=== PATIENT | male | born 1940 | race Hispanic/Latino ===

== ENCOUNTER 2017-11-24 16:30 | Inpatient (IN) | payer MEDICARE ==
--- NOTE | 2017-11-24 18:03 | ED PDOC ---
HPI: Psych/Substance Abuse Time Seen by Provider: 11/24/17 16:52 Chief Complaint (Nursing): Psychiatric Evaluation History Per: Patient (77 Y/O MALE H/O BIPOLAR DISORDER NONCOMPLIANT WITH MEDICATIONS DUE TO INTERMITTENT CONFUSION HERE FOR PSYCH EVALUATION. PATIENT STATES HIS ONE WEEK AGO AND HE HAS BEEN GETTING MORE CONFUSED AND NONCOMPLIANT WITH MEDICATIONS. DENIES ANY SI/HI. PATIENT STATES HIS PSYCHIATRIST ADVISED HIS FAMILY TO BRING HIM TO [facility] FOR ADMISSION AND TREATMENT.) Past Medical History Reviewed: Historical Data, Nursing Documentation, Vital Signs Vital Signs: Last Vital Signs Temp 98.5 F 11/24/17 16:33 Pulse 78 11/24/17 16:33 Resp 18 11/24/17 16:33 BP 158/76 H 11/24/17 16:33 Pulse Ox 99 11/24/17 16:33 - Medical History PMH: HTN, Hypothyroidism - Family History Family History: States: No Known Family Hx - Home Medications Home Medications: Ambulatory Orders Medication Instructions Recorded Unobtainable 11/25/17 - Allergies Allergies/Adverse Reactions: Allergies Allergy/AdvReac Type Severity Reaction Status Date / Time No Known Allergies Allergy Verified 11/24/17 16:33 Review of Systems ROS Statement: Except As Marked, All Systems Reviewed And Found Negative Physical Exam - Reviewed Nursing Documentation Reviewed: Yes Vital Signs Reviewed: Yes - Physical Exam Appears: Positive for: Well, Non-toxic, No Acute Distress Head Exam: Positive for: ATRAUMATIC, NORMAL INSPECTION, NORMOCEPHALIC Skin: Positive for: Normal Color, Warm, DRY Eye Exam: Positive for: EOMI, Normal appearance, PERRL ENT: Positive for: Normal ENT Inspection Neck: Positive for: Normal, Painless ROM Cardiovascular/Chest: Positive for: Regular Rate, Rhythm Respiratory: Positive for: CNT, Normal Breath Sounds Gastrointestinal/Abdominal: Positive for: Normal Exam, Soft Back: Positive for: Normal Inspection Extremity: Positive for: Normal ROM Neurologic/Psych: Positive for: Alert, Oriented - Laboratory Results Result Diagrams: 11/24/17 17:38 11/25/17 07:42 - ECG O2 Sat by Pulse Oximetry: 99 - Progress ED Course And Treament: uti noted. keflex 500 mg and urine cx ordered Disposition - Clinical Impression Clinical Impression: Adjustment disorder with depressed mood, UTI (urinary tract infection) - Patient ED Disposition Is Patient to be Admitted: Transfer of Care - Disposition Disposition: Transfer of Care Disposition Time: 20:15 Condition: STABLE Patient Signed Over To: Sarahi Buenrostro Handoff Comments: pending crisis evl
[2017-11-24 18:19] LABS: BASO # 0.1 K/uL (0.0-0.2); BASO % 0.8 % (0.0-2.0); EOS # 0.3 K/uL (0.0-0.7); EOS % 2.9 % (0.0-4.0); HEMOGLOBIN 15.7 g/dL (12.0-18.0); LYMPH # 2.6 K/uL (1.0-4.3); MEAN CELL VOLUME 89.7 fl (80.0-94.0); MEAN CORPUSCULAR HEMOGLOBIN 30.6 pg (27.0-31.0); MEAN CORPUSCULAR HGB CONC 34.2 g/dL (33.0-37.0); MEAN PLATELET VOLUME 7.8 fl (7.2-11.7); MONO # 0.9 K/uL (0.0-0.8); MONO % 7.9 % (0.0-10.0); NEUT # 7.4 K/uL (1.8-7.0); NEUT % 65.4 % (50.0-75.0); NRBC % 0.1 % (0.0-0.0); RBC 5.13 Mil/uL (4.40-5.90); RED CELL DISTRIBUTION WIDTH 13.1 % (11.5-14.5); WHITE BLOOD COUNT 11.4 K/uL (4.8-10.8)
[2017-11-24 18:30] LABS: ALB/GLOB RATIO 1.2 (1.0-2.1); ALBUMIN 4.3 g/dL (3.5-5.0); ALT/SGPT 18 U/L (21-72); AST/SGOT 21 U/L (17-59); BLOOD UREA NITROGEN 24 mg/dl (9-20); CALCIUM 10.5 mg/dL (8.4-10.2); GFR NON-AFRICAN AMERICAN > 60
[2017-11-24 19:05] LABS: SQUAMOUS EPITHIAL 1 /hpf (0-5); URINE AMORPHOUS SEDIMENT FEW /ul (<OCC); URINE BACTERIA RARE (<OCC); URINE BILIRUBIN NEGATIVE (NEGATIVE); URINE CLARITY CLOUDY (Clear); URINE COLOR YELLOW (YELLOW); URINE GLUCOSE (UA) NEG (Normal); URINE PROTEIN 30 mg/dL (NEGATIVE)
[2017-11-24 19:09] LABS: URINE BLOOD TRACE (NEGATIVE); URINE LEUKOCYTE ESTERASE MODERATE Leu/uL (Negative)
[2017-11-24 19:21] LABS: BARBITURATES, UR NEGATIVE (NEGATIVE); BENZODIAZEPINES, UR NEGATIVE (NEGATIVE); OPIATES, UR NEGATIVE (NEGATIVE); PHENCYCLIDINE, UR NEGATIVE (NEGATIVE)
--- NOTE | 2017-11-24 21:00 | ED PDOC ---
- Laboratory Results Result Diagrams: 11/24/17 17:38 11/24/17 17:38 - ECG ECG: Positive for: Viewed By Me (reviewed by ED attending) ECG Rhythm: Positive for: Sinus Rhythm O2 Sat by Pulse Oximetry: 99 Pulse Ox Interpretation: Normal - Radiology X-Ray: Viewed By Me X-Ray Interpretation: No Acute Disease - Progress ED Course And Treament: Case endorsed to account underwriter from Shane REYES pending labs, crisis eval Patient evaluated by beam worker; to be admitted as per Dr. Orona Medical Decision Making Medical Decision Making: Patient medically stable for psych admission Disposition - Clinical Impression Clinical Impression: Adjustment disorder with depressed mood, UTI (urinary tract infection) - POA Present On Arrival: None - Disposition Disposition: Admitted as In-Patient Disposition Time: 21:20 Condition: STABLE
[2017-11-25] MEDS ORDERED: Magnesium Hydroxide Susp 30 ml UD PO PRN (02:57)
[2017-11-25] MEDS ORDERED: Bismuth Subsalicylate 262 mg/15 ml Sus (240 ml) PO PRN (02:57)
[2017-11-25] MEDS ORDERED: Alum-Mag Hydrox-Simethicone Susp (30 mL) PO PRN (02:57)
--- NOTE | 2017-11-25 03:12 | PCM.BM ---
<MegRuslan Zaire - Last Filed: 11/25/17 03:10> Treatment Plan Problems - Problems identified on initial assessmt Hopelessness/Helplessess Date Initiated: 11/25/17 Time Initiated: 03:11 Assessment reference: NA Status: Active Medication nonadherence Date Initiated: 11/25/17 Time Initiated: 03:11 Assessment reference: NA Status: Active Self Care Deficit Date Initiated: 11/25/17 Time Initiated: 03:11 Assessment reference: NA Status: Active Treatment assets and liabiliti Patient Assests: cooperative, ADL independent, good support system, negotiates basic needs, cognitively intact Patient Liabilities: medical problems - Milieu Protocol Maintain good personal hygiene: every shift Encourage regular showers, every shift Remind patient to perform daily oral care, every shift Assist patient to perform ADL's Maintain personal safety: daily Educate patient to report safety concerns to staff, daily Monitor environment for contraband/sharps Medication safety: Monitor for expected outcome, potential side effects: daily, Assess barriers to learning: daily, Assess readiness for medication education: daily <Julianne Orona - Last Filed: 11/25/17 10:18> - Diagnosis (1) Bipolar disorder Status: Acute Interventions: Medication management, Individual and group therapy, Psychoeducation 11/25/17 10:18 <Rob Beckman - Last Filed: 11/26/17 15:27> Family Contact Family involvement: Family/SO is involved Family contact: Patient agrees to contact, Family has been contacted by patient, Telephone contact initiated by staff Family contact name: trell Lobo-daughter Family contacted how many times per week?: 4 Family contact comment: [employer] spoke with pt's step daughter, Dimple [phone], to gain collateral. As per Dimple pt was first hospitalized in his late teens/early twenties while he was attending [employer] and had a Manic Episode. Pt was hospitalized long-term at [facility] ([facility]) where he received ECT. Pt then was hospitalized at [facility] in 1968 for several months. Pt had several more manic episode in the 70's and 80's. Pt met his in 1968 while a pt at [employer] and she was a nurse. They had a friendship for 10 years before marrying in 1978. Dimple reported that on medication has a high level of baseline functioning and is often compliant on medications. Dimple reported that pt had been unable to care for himself for months prior to his 's and would often just lay in the position on the kitchen floor or on the couch watching TV. Dimple reported that pt has not been caring for the cats or leaving cans opened for them. Pt has not been showering. Dimple reported that pt has resentment toward his for caring for her for so long and her "dying on him." Dimple reported pt stopped taking his medication on purpose hoping it might hasten his departure. Dimple reported pt frequently making passive suicidal statements. Dimple was given unit fax number so pt's psychiatrist and PMD can send medical records. Dimple reported that pt is unable to reside with any family members at this time. - Goals for Treatment Patient goals for treatment: Pt has no goals for treatment at this time. Patient's family/SO goals for treatment: Pt's family would like pt to regain his zeal for life and become motivated to care for himself and decide that he wants to live. Discharge/Continuing Care - Education Needs Education Needs: Family Medication, Family Diagnosis/Disease Process, Family Coping Skills, Family Anger Management skills, Family Community resources, Family Aftercare Safety Plan, Patient Medication, Patient Diagnosis/Disease Process, Patient Coping Skills, Patient Anger Management skills, Patient Community resources, Patient Aftercare Safety Plan - Discharge Discharge Criteria: Tolerates medication w/o severe side effects, Free of Suicidal thoughts, Free of agitation, Normal sleep pattern, Reduction of target symptoms Discharge to:: Home, With Family - Treatment Team Participation Patient/Family/SO Statement: 11/26/17 15:25 Pt seen in team on 11/26/17. Pt remains irritable, apathetic, and passively suicidal, but agreeable to medication and admission until Friday, 12/01. Discussed with Family/SO: Yes Was Patient/Family/SO present at Treatment Team Meeting: Yes
[2017-11-25 08:15] LABS: IRON 47 ug/dL (49-181)
[2017-11-25 08:21] LABS: LDL CHOLESTEROL 110 mg/dL (0-129)
[2017-11-25 08:26] LABS: T4 7.86 ug/dl (5.5-11.0)
[2017-11-25 08:30] LABS: % IRON SATURATION 16 % (20-55); TOTAL IRON BINDING CAPACITY 294 ug/dL (250-450)
--- NOTE | 2017-11-25 08:44 | RAD ---
Date of service: 11/24/2017 HISTORY: ROUTINE COMPARISON: No prior. FINDINGS: LUNGS: The lungs are well inflated and clear. PLEURA: No significant pleural effusion identified, no pneumothorax apparent. CARDIOVASCULAR: Normal. OSSEOUS STRUCTURES: No significant abnormalities. VISUALIZED UPPER ABDOMEN: Normal. OTHER FINDINGS: None. IMPRESSION: No active pulmonary disease.
--- NOTE | 2017-11-25 09:11 | CARD ---
APPROVED REPORT Date of service: 11/24/2017 <Conclusion> Sinus rhythm with premature atrial complexes Left anterior fascicular block Abnormal ECG
--- NOTE | 2017-11-25 10:08 | PCM.PSYCH ---
Initial Psychiatric Evaluation - Initial Psychiatric Evaluation Type of Admission: Voluntary Legal Status: Capacity Chief Complaint (in patient's own words): "I just want to ." Patient's Reaction to Hospitalization: HPI: 77 yo male w/ history of Bipolar disorder, presents w/ severe depression in the context of the recent of his . +Depressed mood +Anhedonia + Suicidal Ideation w/o current plan +Hopelessness +Poor memory +Concentration + Poor appetite +Poor sleep +Intermittent AH of his calling his name +Weight loss ~ 30 lbs in the last 2-3 months +Poor self care (not showering or leaving his home; eating and drinking minimally) PPHx: 6 prior psychiatric admissions, last in 1992; h/o Bipolar Disorder, not currently compliant w/ treatment or medications; most recently treated w/ Zyprexa and Lamictal; patient requested to be placed back on Zyprexa; Denies h/ o suicide attempts PMHx: HTN, Hypothyroidism (not compliant with medications) ALL: NKDA SHx: of 40 year 2 weeks ago; now lives alone w/ his cats; 1 step daughter, 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[place] [employer]; no drugs/etoh/cig use FHx: Denies family h/o mental illness Current Medications: Active Medications Generic Name Dose Route Start Last Admin Trade Name Suleimanq PRN Reason Stop Dose Admin Acetaminophen 650 mg 11/25/17 02:57 Tylenol 325mg Tab PO Q4 PRN Pain, moderate (4-7) Al Hydrox/Mg Hydrox/Simethicone 30 ml 11/25/17 02:57 Maalox Plus 30 Ml PO Q4 PRN Dyspepsia Bismuth Subsalicylate 524 mg 11/25/17 02:57 Pepto-Bismol PO Q4 PRN Diarrhea Lorazepam 0.5 mg 11/25/17 02:57 Ativan PO 12/09/17 02:58 HS PRN Insomnia Lorazepam 0.5 mg 11/25/17 02:57 Ativan PO 12/09/17 02:58 Q6 PRN Anixety/Agitation Magnesium Hydroxide 30 ml 11/25/17 02:57 Milk Of Magnesia PO HS PRN Constipation Past Psychiatric History - Past Psychiatric History Previous Treatment History: Inpatient Pertinent Medical Hx (Current Medical&Sleep Prob, Allergies): Allergies Allergy/AdvReac Type Severity Reaction Status Date / Time No Known Allergies Allergy Verified 11/24/17 16:33 Unobtainable 11/25/17 Review of Systems - Psychiatric Psychiatric: As Per HPI, Abnormal Sleep Pattern, Anhedonia, Anxiety, Auditory Hallucinations, Behavioral Changes, Change in Appetite, Confusion, Depression, Difficulty Concentrating, Hallucinations, Hopelessness, Memory Loss, Mood Swings , Suicidal Ideation Mental Status Examination - Personal Presentation Personal Presentation: Looks stated age - Affect Affect: Blunted, Depressed - Motor Activity Motor Activity: Psychomotor Retardation - Reliability in Providing Information Reliability in Providing Information: Poor, due to cognitve impairment - Speech Speech: Coherent - Mood Mood: Depressed - Formal Thought Process Formal Thought Process: No Impairment - Hallucinations/Delusions Additional comments: No current AH/VH/paranoia/delusions - Obsessions/Compulsions Obsessions: No Compulsions: No - Cognitive Functions Orientation: Person, Place, Situation, Time Sensorium: Alert Judgement: Intact, as evidence by: Insight regarding need for hospitalization Memory: Recent intact, as evidence by: Ability to recall events of the day - Risk Risk: Suicidal, Diminished functioning - Strength & Assets Inventory Strength & Assets Inventory: Family support, Cooperative - Limitations Limitations: Living alone, Decreased memory, recent DSM 5 DX - DSM 5 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
[2017-11-25 10:52] LABS: BLOOD UREA NITROGEN 17 mg/dl (9-20); CALCIUM 10.3 mg/dL (8.4-10.2); GFR NON-AFRICAN AMERICAN > 60; HDL CHOLESTEROL 44 MG/DL (30-70)
[2017-11-25] MEDS: Multivitamin With Minerals Tab PO SCH (12:38)
--- NOTE | 2017-11-25 16:05 | CP.PCM.CON ---
History of Present Illness - History of Present Illness History of Present Illness: cc: medical clearance for psych HPI: 77 yo male pwiht pmh of htn and hypothyroidism here with severe depression and suicidal ideation. he denies any physical complaints, he denies abdominal pain, fever chills, dysuria, he does have hesitancy and decreased urine output. PMH: HTN Hypothyroidism - not on medds PSurgicalH: herniated disc 1998 cataracts lung collapse surgery Meds: none at home Allergies: nkda FH: none for inherited diseases SH: quit smoking 1975 non drinker no drugs Review of Systems - Review of Systems All systems: reviewed and no additional remarkable complaints except Review of Systems: except hpi Past Patient History - Past Social History Smoking Status: Never Smoked Alcohol: None Drugs: Denies - CARDIAC Hx Hypertension: Yes - PULMONARY Hx Tuberculosis: No - NEUROLOGICAL HX Cerebrovascular Accident: No Hx Seizures: No - ENDOCRINE/METABOLIC Hx Hypothyroidism: Yes - HEMATOLOGICAL/ONCOLOGICAL Hx Cancer: No Hx Human Immunodeficiency Virus (HIV): No - MUSCULOSKELETAL/RHEUMATOLOGICAL Hx Falls: No - GENITOURINARY/GYNECOLOGICAL Hx Sexually Transmitted Disorders: No - PSYCHIATRIC Hx Bipolar Disorder: Yes Hx Depression: Yes Hx Substance Use: No - SURGICAL HISTORY Other/Comment: back sx, cataract sx,lung sx - ANESTHESIA Hx Anesthesia: Yes Hx Anesthesia Reactions: No Meds Allergies/Adverse Reactions: Allergies Allergy/AdvReac Type Severity Reaction Status Date / Time No Known Allergies Allergy Verified 11/24/17 16:33 - Medications Medications: Current Medications Acetaminophen (Tylenol 325mg Tab) 650 mg PO Q4 PRN PRN Reason: Pain, moderate (4-7) Al Hydrox/Mg Hydrox/Simethicone (Maalox Plus 30 Ml) 30 ml PO Q4 PRN PRN Reason: Dyspepsia Bismuth Subsalicylate (Pepto-Bismol) 524 mg PO Q4 PRN PRN Reason: Diarrhea Lorazepam (Ativan) 0.5 mg PO HS PRN PRN Reason: Insomnia Stop: 12/09/17 02:58 Lorazepam (Ativan) 0.5 mg PO Q6 PRN PRN Reason: Anixety/Agitation Stop: 12/09/17 02:58 Magnesium Hydroxide (Milk Of Magnesia) 30 ml PO HS PRN PRN Reason: Constipation Multivitamins/Minerals (Therapeutic-M Tab) 1 tab PO DAILY JACKY Last Admin: 11/25/17 12:38 Dose: 1 tab Olanzapine (Zyprexa) 10 mg PO HS JACKY Physical Exam - Constitutional Appears: Well, No Acute Distress - Head Exam Head Exam: ATRAUMATIC, NORMAL INSPECTION, NORMOCEPHALIC - Eye Exam Eye Exam: EOMI, Normal appearance, PERRL - ENT Exam ENT Exam: Mucous Membranes Moist, Normal Exam - Neck Exam Neck exam: Positive for: Normal Inspection - Respiratory Exam Respiratory Exam: Clear to Auscultation Bilateral, NORMAL BREATHING PATTERN - Cardiovascular Exam Cardiovascular Exam: REGULAR RHYTHM, +S1, +S2 - GI/Abdominal Exam GI & Abdominal Exam: Normal Bowel Sounds, Soft. absent: Tenderness - Rectal Exam Rectal Exam: NORMAL INSPECTION - Extremities Exam Extremities exam: Positive for: normal inspection - Back Exam Back exam: NORMAL INSPECTION - Neurological Exam Neurological exam: Alert, Oriented x3 - Psychiatric Exam Psychiatric exam: Depressed, Flat Affect - Skin Skin Exam: Intact, Normal Color, Warm Results - Vital Signs Recent Vital Signs: Last Vital Signs Temp 97.1 F L 11/25/17 05:33 Pulse 60 11/25/17 05:33 Resp 19 11/25/17 05:33 BP 181/83 H 11/25/17 05:33 Pulse Ox 99 11/25/17 15:58 - Labs Result Diagrams: 11/24/17 17:38 11/25/17 07:42 Labs: Laboratory Results - last 24 hr 11/24/17 11/24/17 11/24/17 17:38 17:38 18:21 WBC 11.4 H RBC 5.13 Hgb 15.7 Hct 46.0 MCV 89.7 MCH 30.6 MCHC 34.2 RDW 13.1 Plt Count 265 MPV 7.8 Neut % (Auto) 65.4 Lymph % (Auto) 23.0 Eddy % (Auto) 7.9 Eos % (Auto) 2.9 Baso % (Auto) 0.8 Neut # (Auto) 7.4 H Lymph # (Auto) 2.6 Eddy # (Auto) 0.9 H Eos # (Auto) 0.3 Baso # (Auto) 0.1 Sodium 140 Potassium 4.2 Chloride 106 Carbon Dioxide 21 L Anion Gap 17 BUN 24 H Creatinine 0.8 Est GFR ( Amer) > 60 Est GFR (Non-Af Amer) > 60 Random Glucose 115 H Hemoglobin A1c Calcium 10.5 H Iron TIBC % Saturation Ferritin Total Bilirubin 0.9 AST 21 ALT 18 L Alkaline Phosphatase 68 Total Protein 7.9 Albumin 4.3 Globulin 3.7 Albumin/Globulin Ratio 1.2 Triglycerides Cholesterol LDL Cholesterol Direct HDL Cholesterol Vitamin B12 Free T4 Thyroxine (T4) TSH 3rd Generation 4.23 Urine Color Urine Clarity Urine pH Ur Specific [place] Urine Protein Urine Glucose (UA) Urine Ketones Urine Blood Urine Nitrate Urine Bilirubin Urine Urobilinogen Ur Leukocyte Esterase Urine RBC (Auto) Urine Microscopic WBC Ur Squamous Epith Cells Amorphous Sediment Urine Bacteria Urine Opiates Screen Urine Methadone Screen Ur Barbiturates Screen Carbamazepine < 3.0 L Ur Phencyclidine Scrn Ur Amphetamines Screen U Benzodiazepines Scrn U Oth Cocaine Metabols U Cannabinoids Screen Alcohol, Quantitative < 10 11/24/17 11/24/17 11/25/17 18:45 18:45 07:42 WBC RBC Hgb Hct MCV MCH MCHC RDW Plt Count MPV Neut % (Auto) Lymph % (Auto) Eddy % (Auto) Eos % (Auto) Baso % (Auto) Neut # (Auto) Lymph # (Auto) Eddy # (Auto) Eos # (Auto) Baso # (Auto) Sodium 138 Potassium 4.1 Chloride 105 Carbon Dioxide 28 Anion Gap 9 L BUN 17 Creatinine 0.7 L Est GFR ( Amer) > 60 Est GFR (Non-Af Amer) > 60 Random Glucose 108 Hemoglobin A1c Calcium 10.3 H Iron TIBC % Saturation Ferritin 100.0 Total Bilirubin AST ALT Alkaline Phosphatase Total Protein Albumin Globulin Albumin/Globulin Ratio Triglycerides 58 Cholesterol 176 LDL Cholesterol Direct 110 HDL Cholesterol 44 Vitamin B12 826 Free T4 Thyroxine (T4) 7.86 TSH 3rd Generation 3.57 Urine Color Yellow Urine Clarity Cloudy Urine pH 6.0 Ur Specific [place] 1.026 Urine Protein 30 Urine Glucose (UA) Neg Urine Ketones Negative Urine Blood Trace H Urine Nitrate Negative Urine Bilirubin Negative Urine Urobilinogen 2.0 Ur Leukocyte Esterase Moderate Urine RBC (Auto) 24 H Urine Microscopic WBC 45 H Ur Squamous Epith Cells 1 Amorphous Sediment Few H Urine Bacteria Rare Urine Opiates Screen Negative Urine Methadone Screen Negative Ur Barbiturates Screen Negative Carbamazepine Ur Phencyclidine Scrn Negative Ur Amphetamines Screen Negative U Benzodiazepines Scrn Negative U Oth Cocaine Metabols Negative U Cannabinoids Screen Negative Alcohol, Quantitative 11/25/17 11/25/17 11/25/17 07:42 07:42 07:42 WBC RBC Hgb Hct MCV MCH MCHC RDW Plt Count MPV Neut % (Auto) Lymph % (Auto) Eddy % (Auto) Eos % (Auto) Baso % (Auto) Neut # (Auto) Lymph # (Auto) Eddy # (Auto) Eos # (Auto) Baso # (Auto) Sodium Potassium Chloride Carbon Dioxide Anion Gap BUN Creatinine Est GFR ( Amer) Est GFR (Non-Af Amer) Random Glucose Hemoglobin A1c 5.2 Calcium Iron 47 L TIBC 294 % Saturation 16 L Ferritin Total Bilirubin AST ALT Alkaline Phosphatase Total Protein Albumin Globulin Albumin/Globulin Ratio Triglycerides Cholesterol LDL Cholesterol Direct HDL Cholesterol Vitamin B12 Free T4 1.02 Thyroxine (T4) TSH 3rd Generation Urine Color Urine Clarity Urine pH Ur Specific [place] Urine Protein Urine Glucose (UA) Urine Ketones Urine Blood Urine Nitrate Urine Bilirubin Urine Urobilinogen Ur Leukocyte Esterase Urine RBC (Auto) Urine Microscopic WBC Ur Squamous Epith Cells Amorphous Sediment Urine Bacteria Urine Opiates Screen Urine Methadone Screen Ur Barbiturates Screen Carbamazepine Ur Phencyclidine Scrn Ur Amphetamines Screen U Benzodiazepines Scrn U Oth Cocaine Metabols U Cannabinoids Screen Alcohol, Quantitative Assessment & Plan - Assessment and Plan (Free Text) Assessment: 77 yo male pmh of hypertension and hypothyroidism here with suicidal ideation and severe depression 1. UTI- associated with hesitancy and decreased urine output follow cultures continue keflex add flomax follow up with Urology as outpatient 2. Hypertension will monitor and norvasc 2.5 add meds if needed. 3. hypothyroidism ? tsh is normal
[2017-11-25 22:11] LABS: FOLATE > 20.0 ng/mL
--- NOTE | 2017-11-26 08:03 | PCM.PYCHPN ---
Psychiatric Progress Note - Psychiatric Progress Note Patient seen today, length of contact: Pt evaluated, case discussed w/ team, chart reviewed Patient Chief Complaint: "I just want to ." Problems Identified/Issues Discussed: Patient continues to report severe depression w/ hopelessness and passive ideation that he will . He continues to have poor self care. Patient encouraged to eat and shower. +Low energy +Anhedonia +Poor concentration. No adverse effects to medications reported. Medication Change: No Medical Record Reviewed: Yes Consults ordered or reviewed: Medicine consult Mental Status Examination - Cognitive Function Orientation: Person, Place, Situation, Time Memory: Impaired Attention: Poor Concentration: Poor Association: WNL Decription of patient's judgement and insights: Fair I/ Poor J - Mood Mood: Depressed - Affect Affect: Blunted, Depressed - Speech Speech: Soft - Formal Thought Process Formal Thought Process: No Impairment Psychotic Thoughts and Behaviors: Denies current AH/VH - Suicidal Ideation Suicidal Ideation: Yes Plan: Passive ideation; patients wishes he would just - Homicidal Ideation Homicidal Ideation: No Goal/Treatment Plan - Goal/Treatment Plan Need for Continued Stay: Remain at risks for inpatient hospitalization, Severe depression anxiety, Discharge may exacerbated symptoms, Severe functional impairment Progress Toward Problem(s) and Goals/Treatment Plan: Bipolar Disorder w/ Psychotic Features -Individual and group therapy -Continue Zyprexa -Individual and group therapy -Obtain collateral history -Medicine consult -Disposition planning Estimated Date of D/C: 12/01/17
[2017-11-26] MEDS: Multivitamin With Minerals Tab PO SCH (08:53)
[2017-11-26 14:11] VITALS: BMI 20.2
[2017-11-27] MEDS: Multivitamin With Minerals Tab PO SCH (08:51)
--- NOTE | 2017-11-27 10:59 | PCM.PYCHPN ---
Psychiatric Progress Note - Psychiatric Progress Note Patient seen today, length of contact: Pt evaluated, case discussed w/ team, chart reviewed Patient Chief Complaint: "I just want to ." Problems Identified/Issues Discussed: Patient continues to report severe depression w/ hopelessness and passive ideation that he will . Patient is currently irritable w/ psychomotor agitation. He continues to have poor self care. Patient encouraged to eat and shower. +Low energy +Anhedonia +Poor concentration. No adverse effects to medications reported. Medication Change: No Medical Record Reviewed: Yes Consults ordered or reviewed: Medicine consult Mental Status Examination - Cognitive Function Orientation: Person, Place, Situation, Time Memory: Impaired Attention: Poor Concentration: Poor Association: WNL Decription of patient's judgement and insights: Fair I/ Poor J - Mood Mood: Depressed - Affect Affect: Blunted, Depressed - Speech Speech: Soft - Formal Thought Process Formal Thought Process: No Impairment Psychotic Thoughts and Behaviors: Denies current AH/VH - Suicidal Ideation Suicidal Ideation: Yes - Homicidal Ideation Homicidal Ideation: No Goal/Treatment Plan - Goal/Treatment Plan Need for Continued Stay: Remain at risks for inpatient hospitalization, Severe depression anxiety, Discharge may exacerbated symptoms, Severe functional impairment Progress Toward Problem(s) and Goals/Treatment Plan: Bipolar Disorder w/ Psychotic Features -Individual and group therapy -Continue Zyprexa -Individual and group therapy -Obtain collateral history -Medicine consult -Disposition planning Estimated Date of D/C: 12/01/17
[2017-11-28] MEDS: Multivitamin With Minerals Tab PO SCH ×2 (09:36→09:42)
--- NOTE | 2017-11-28 10:46 | PCM.PYCHPN ---
Psychiatric Progress Note - Psychiatric Progress Note Patient seen today, length of contact: Pt evaluated, case discussed w/ team, chart reviewed Patient Chief Complaint: "I just want to ." Problems Identified/Issues Discussed: Patient continues to report severe depression w/ hopelessness. No active suicidal ideation/plan/intent, but he continues to report passive ideation that he would . He continues to have poor self care. Patient encouraged to eat and shower. +Low energy +Anhedonia. No adverse effects to medications reported. Medication Change: Yes (Increase Zyprexa) Medical Record Reviewed: Yes Consults ordered or reviewed: Medicine consult Psychology consult: Pt is a 77 year old male admitted into the geropsych unit and referred to the administrative underwriter for evaluation. On the DRS, pt scored an overall score of 135. Pt scored within normal limits on all tasks. Pt's Initiation, Memory, Construction , Conceptualization and Attention skills all fell within normal limits. Overall 135 Cognitive skills were found to be intact Mental Status Examination - Cognitive Function Orientation: Person, Place, Situation, Time Memory: Intact Attention: WNL Concentration: WNL Association: WNL Fund of Knowledge: WNL Decription of patient's judgement and insights: Improving I/J - Mood Mood: Depressed - Affect Affect: Depressed - Speech Speech: Soft - Formal Thought Process Formal Thought Process: No Impairment Psychotic Thoughts and Behaviors: Denies current AH/VH - Suicidal Ideation Suicidal Ideation: Yes Plan: Passive wishes that he would ; not active suicidal ideation/plan/intent - Homicidal Ideation Homicidal Ideation: No Goal/Treatment Plan - Goal/Treatment Plan Need for Continued Stay: Remain at risks for inpatient hospitalization, Severe depression anxiety, Discharge may exacerbated symptoms, Severe functional impairment Progress Toward Problem(s) and Goals/Treatment Plan: Bipolar Disorder w/ Psychotic Features -Individual and group therapy -Increase Zyprexa -Individual and group therapy -Medicine consult -Disposition planning Estimated Date of D/C: 12/01/17
--- NOTE | 2017-11-28 11:10 | CP.PCM.CON ---
History of Present Illness - History of Present Illness History of Present Illness: Pt is a 77 year old male admitted into the geropsych unit and referred to the newspaper writer for evaluation. On the DRS, pt scored an overall score of 135. Pt scored within normal limits on all tasks. Pt's Initiation, Memory, Construction , Conceptualization and Attention skills all fell within normal limits. Overall 135 Cognitive skills were found to be intact Past Patient History - Past Social History Smoking Status: Never Smoked Alcohol: None Drugs: Denies - CARDIAC Hx Hypertension: Yes - PULMONARY Hx Tuberculosis: No - NEUROLOGICAL HX Cerebrovascular Accident: No Hx Seizures: No - ENDOCRINE/METABOLIC Hx Hypothyroidism: Yes - HEMATOLOGICAL/ONCOLOGICAL Hx Cancer: No Hx Human Immunodeficiency Virus (HIV): No - MUSCULOSKELETAL/RHEUMATOLOGICAL Hx Falls: No - GENITOURINARY/GYNECOLOGICAL Hx Sexually Transmitted Disorders: No - PSYCHIATRIC Hx Bipolar Disorder: Yes Hx Depression: Yes Hx Substance Use: No - SURGICAL HISTORY Other/Comment: back sx, cataract sx,lung sx - ANESTHESIA Hx Anesthesia: Yes Hx Anesthesia Reactions: No Meds Allergies/Adverse Reactions: Allergies Allergy/AdvReac Type Severity Reaction Status Date / Time No Known Allergies Allergy Verified 11/24/17 16:33 - Medications Medications: Current Medications Acetaminophen (Tylenol 325mg Tab) 650 mg PO Q4 PRN PRN Reason: Pain, moderate (4-7) Last Admin: 11/28/17 09:37 Dose: 650 mg Al Hydrox/Mg Hydrox/Simethicone (Maalox Plus 30 Ml) 30 ml PO Q4 PRN PRN Reason: Dyspepsia Amlodipine Besylate (Norvasc) 5 mg PO DAILY JACKY Last Admin: 11/28/17 09:35 Dose: 5 mg Bismuth Subsalicylate (Pepto-Bismol) 524 mg PO Q4 PRN PRN Reason: Diarrhea Cephalexin Monohydrate (Keflex) 500 mg PO Q12 JACKY PRN Reason: Protocol Last Admin: 11/28/17 09:33 Dose: 500 mg Lorazepam (Ativan) 0.5 mg PO HS PRN PRN Reason: Insomnia Stop: 12/09/17 02:58 Lorazepam (Ativan) 0.5 mg PO Q6 PRN PRN Reason: Anixety/Agitation Stop: 12/09/17 02:58 Magnesium Hydroxide (Milk Of Magnesia) 30 ml PO HS PRN PRN Reason: Constipation Multivitamins/Minerals (Therapeutic-M Tab) 1 tab PO DAILY [facility] Last Admin: 11/28/17 09:42 Dose: Not Given Olanzapine (Zyprexa) 10 mg PO [facility] Last Admin: 11/27/17 21:31 Dose: 10 mg Tamsulosin HCl (Flomax) 0.4 mg PO DAILY [facility] Last Admin: 11/28/17 09:32 Dose: 0.4 mg Results - Vital Signs Recent Vital Signs: Last Vital Signs Temp 97.1 F L 11/28/17 05:48 Pulse 76 11/28/17 09:35 Resp 20 11/28/17 05:48 BP 135/87 11/28/17 09:35 Pulse Ox 99 11/25/17 15:58 - Labs Result Diagrams: 11/24/17 17:38 11/25/17 07:42
[2017-11-29] MEDS: Multivitamin With Minerals Tab PO SCH (08:37)
--- NOTE | 2017-11-29 09:48 | PCM.PYCHPN ---
Psychiatric Progress Note - Psychiatric Progress Note Patient seen today, length of contact: Pt evaluated, case discussed w/ team, chart reviewed Patient Chief Complaint: "I just want to ." Problems Identified/Issues Discussed: Patient did not sleep well last night, due to acute psychosis. He was observed talking to his . Patient continues to report severe depression w/ hopelessness. No active suicidal ideation/plan/intent, but he continues to report passive ideation that he would . He continues to have poor self care. Patient encouraged to eat and shower. +Low energy +Anhedonia. No adverse effects to medications reported. Medication Change: No Medical Record Reviewed: Yes Consults ordered or reviewed: Medicine consult Psychology consult: Pt is a 77 year old male admitted into the geropsych unit and referred to the bid writer for evaluation. On the DRS, pt scored an overall score of 135. Pt scored within normal limits on all tasks. Pt's Initiation, Memory, Construction , Conceptualization and Attention skills all fell within normal limits. Overall 135 Cognitive skills were found to be intact Mental Status Examination - Cognitive Function Orientation: Person, Place, Situation, Time Memory: Intact Attention: WNL Concentration: WNL Association: WNL Fund of Knowledge: [facility] Decription of patient's judgement and insights: Improving I/J - Mood Mood: Depressed - Affect Affect: Depressed - Speech Speech: Soft - Formal Thought Process Formal Thought Process: Hallucinations Psychotic Thoughts and Behaviors: +AH - Suicidal Ideation Suicidal Ideation: Yes - Homicidal Ideation Homicidal Ideation: No Goal/Treatment Plan - Goal/Treatment Plan Need for Continued Stay: Remain at risks for inpatient hospitalization, Severe depression anxiety, Discharge may exacerbated symptoms, Severe functional impairment Progress Toward Problem(s) and Goals/Treatment Plan: Bipolar Disorder w/ Psychotic Features -Individual and group therapy -Continue Zyprexa -Individual and group therapy -Medicine consult -Disposition planning
[2017-11-30 06:15] VITALS: O2SAT 16
--- NOTE | 2017-11-30 08:47 | PCM.PYCHPN ---
Psychiatric Progress Note - Psychiatric Progress Note Patient seen today, length of contact: Pt evaluated, case discussed w/ team, chart reviewed Patient Chief Complaint: "I just want to ." Problems Identified/Issues Discussed: Patient continues to report poor sleep. He continues to be depressed w/ poor self care, hopelessness, low motivation, low energy and passive wishes that he would . He denies AH, but has been observed talking to himself. Patient encouraged to eat and shower. No adverse effects to medications reported. Medication Change: No Medical Record Reviewed: Yes Consults ordered or reviewed: Medicine consult Psychology consult: Pt is a 77 year old male admitted into the geropsych unit and referred to the communications writer for evaluation. On the DRS, pt scored an overall score of 135. Pt scored within normal limits on all tasks. Pt's Initiation, Memory, Construction , Conceptualization and Attention skills all fell within normal limits. Overall 135 Cognitive skills were found to be intact Mental Status Examination - Cognitive Function Orientation: Person, Place, Situation, Time Memory: Intact Attention: WNL Concentration: WNL Association: WNL Fund of Knowledge: WNL Decription of patient's judgement and insights: Improving I/J - Mood Mood: Depressed - Affect Affect: Depressed - Speech Speech: Soft - Formal Thought Process Formal Thought Process: No Impairment Psychotic Thoughts and Behaviors: Denies acute AH, but has been observed talking to himself - Suicidal Ideation Suicidal Ideation: No - Homicidal Ideation Homicidal Ideation: No Goal/Treatment Plan - Goal/Treatment Plan Need for Continued Stay: Remain at risks for inpatient hospitalization, Severe depression anxiety, Discharge may exacerbated symptoms, Severe functional impairment Progress Toward Problem(s) and Goals/Treatment Plan: Bipolar Disorder w/ Psychotic Features -Individual and group therapy -Continue Zyprexa -Individual and group therapy -Medicine consult -Disposition planning Estimated Date of D/C: 12/03/17
[2017-11-30] MEDS: Multivitamin With Minerals Tab PO SCH (09:03)
[2017-12-01] MEDS: Multivitamin With Minerals Tab PO SCH (08:47)
--- NOTE | 2017-12-01 09:49 | PCM.PYCHPN ---
Psychiatric Progress Note - Psychiatric Progress Note Patient seen today, length of contact: Pt evaluated, case discussed w/ team, chart reviewed Patient Chief Complaint: "I just want to ." Problems Identified/Issues Discussed: Patient continues to report depressed mood. He denies acute suicidal ideation/ plan/intent, but has no motivation to live and passively wishes he would . He reports difficulty w/ memory and concentration. He denies acute AH/VH. He continues to have poor self care, spends most of the day in bed and has to be encouraged to leave his room to eat and shower. No adverse effects to medications reported. Medication Change: No (Patient not agreeable to medication changes at this time) Medical Record Reviewed: Yes Consults ordered or reviewed: Medicine consult Psychology consult: Pt is a 77 year old male admitted into the geropsych unit and referred to the investigative writer for evaluation. On the DRS, pt scored an overall score of 135. Pt scored within normal limits on all tasks. Pt's Initiation, Memory, Construction , Conceptualization and Attention skills all fell within normal limits. Overall 135 Cognitive skills were found to be intact Mental Status Examination - Cognitive Function Orientation: Person, Place, Situation, Time Memory: Intact Attention: WNL Concentration: WNL Association: WNL Fund of Knowledge: WN Decription of patient's judgement and insights: Improving I/J - Mood Mood: Depressed - Affect Affect: Blunted, Depressed - Speech Speech: Soft - Formal Thought Process Formal Thought Process: No Impairment Psychotic Thoughts and Behaviors: Denies acute AH/VH/paranoia/delusions - Suicidal Ideation Suicidal Ideation: No - Homicidal Ideation Homicidal Ideation: No Goal/Treatment Plan - Goal/Treatment Plan Need for Continued Stay: Remain at risks for inpatient hospitalization, Severe depression anxiety, Discharge may exacerbated symptoms, Severe functional impairment Progress Toward Problem(s) and Goals/Treatment Plan: Bipolar Disorder w/ Psychotic Features -Individual and group therapy -Continue Zyprexa -Medicine consult -Disposition planning Estimated Date of D/C: 12/04/17
--- NOTE | 2017-12-02 09:03 | PCM.PYCHPN ---
Psychiatric Progress Note - Psychiatric Progress Note Patient seen today, length of contact: Pt evaluated, case discussed w/ team, chart reviewed Patient Chief Complaint: "I'm depressed." Problems Identified/Issues Discussed: Patient continues to report depressed mood, but denies acute suicidal ideation/plan/intent. He has been out of bed more and more engaged in the community. No adverse effects to medications reported. Patient does not want to modify his medications at this time. Medication Change: No Medical Record Reviewed: Yes Consults ordered or reviewed: Medicine consult Psychology consult: Pt is a 77 year old male admitted into the geropsych unit and referred to the journalists and other writers for evaluation. On the DRS, pt scored an overall score of 135. Pt scored within normal limits on all tasks. Pt's Initiation, Memory, Construction, Conceptualization and Attention skills all fell within normal limits. Overall 135 Cognitive skills were found to be intact Mental Status Examination - Cognitive Function Orientation: Person, Place, Situation, Time Memory: Intact Attention: WNL Concentration: WNL Association: WNL Fund of Knowledge: WN Decription of patient's judgement and insights: Improving I/J - Mood Mood: Depressed - Affect Affect: Constricted, Depressed - Speech Speech: Soft - Formal Thought Process Formal Thought Process: No Impairment Psychotic Thoughts and Behaviors: Denies acute AH/VH/paranoia/delusions - Suicidal Ideation Suicidal Ideation: No - Homicidal Ideation Homicidal Ideation: No Goal/Treatment Plan - Goal/Treatment Plan Need for Continued Stay: Severe depression anxiety, Discharge may exacerbated symptoms, Severe functional impairment Progress Toward Problem(s) and Goals/Treatment Plan: Bipolar Disorder w/ Psychotic Features -Individual and group therapy -Continue Zyprexa -Medicine consult -Disposition planning Estimated Date of D/C: 12/04/17
[2017-12-02] MEDS: Multivitamin With Minerals Tab PO SCH (10:00)
--- NOTE | 2017-12-03 08:08 | PCM.PYCHPN ---
Psychiatric Progress Note - Psychiatric Progress Note Patient seen today, length of contact: Pt evaluated, case discussed w/ team, chart reviewed Patient Chief Complaint: "I'm depressed." Problems Identified/Issues Discussed: Patient reports that his mood is improving. He is more goal oriented. No acute passive or active suicidal ideation. No psychiatric symptoms. He reports improved sleep and appetite. No adverse effects to medications reported. Medication Change: No Medical Record Reviewed: Yes Consults ordered or reviewed: Medicine consult Psychology consult: Pt is a 77 year old male admitted into the geropsych unit and referred to the fiction writer for evaluation. On the DRS, pt scored an overall score of 135. Pt scored within normal limits on all tasks. Pt's Initiation, Memory, Construction, Conceptualization and Attention skills all fell within normal limits. Overall 135 Cognitive skills were found to be intact Mental Status Examination - Cognitive Function Orientation: Person, Place, Situation, Time Memory: Intact Attention: WNL Concentration: WNL Association: WNL Fund of Knowledge: WNL Decription of patient's judgement and insights: Improving I/J - Mood Mood: Depressed - Affect Affect: Constricted - Speech Speech: Appropriate - Formal Thought Process Formal Thought Process: No Impairment Psychotic Thoughts and Behaviors: Denies acute AH/VH/paranoia/delusions - Suicidal Ideation Suicidal Ideation: No - Homicidal Ideation Homicidal Ideation: No Goal/Treatment Plan - Goal/Treatment Plan Need for Continued Stay: Severe depression anxiety Progress Toward Problem(s) and Goals/Treatment Plan: Bipolar Disorder w/ Psychotic Features -Individual and group therapy -Continue Zyprexa -Medicine consult -Disposition planning- likely discharge tomorrow if patient continues to improve clinically Estimated Date of D/C: 12/04/17
[2017-12-03] MEDS: Multivitamin With Minerals Tab PO SCH (09:16)
[2017-12-03 17:55] LABS: URINE BACTERIA RARE (<OCC); URINE BILIRUBIN NEGATIVE (NEGATIVE); URINE BLOOD NEGATIVE (NEGATIVE); URINE CLARITY SLIGHTY-CLOUDY (Clear); URINE COLOR YELLOW (YELLOW); URINE GLUCOSE (UA) NEG (Normal); URINE LEUKOCYTE ESTERASE SMALL Leu/uL (Negative); URINE PROTEIN NEGATIVE (NEGATIVE)
--- NOTE | 2017-12-04 08:20 | PCM.PYCHPN ---
Psychiatric Progress Note - Psychiatric Progress Note Patient seen today, length of contact: Pt evaluated, case discussed w/ team, chart reviewed Patient Chief Complaint: "I'm depressed." Problems Identified/Issues Discussed: Patient has gotten worse clinically. He reports worsening depression with passive suicidal ideation. He was disorganized, labile and talking to himself. He reports anxiety and is concerned that he can not care for his basic needs with his current mental status. He reports worsening sleep and panic attacks. Medication Change: Yes (Increase Zyprexa, Start Depakote ) Medical Record Reviewed: Yes Consults ordered or reviewed: Medicine consult Psychology consult: Pt is a 77 year old male admitted into the geropsych unit and referred to the bond underwriter for evaluation. On the DRS, pt scored an overall score of 135. Pt scored within normal limits on all tasks. Pt's Initiation, Memory, Construction, Conceptualization and Attention skills all fell within normal limits. Overall 135 Cognitive skills were found to be intact Mental Status Examination - Cognitive Function Orientation: Person, Place, Situation, Time Memory: Intact Attention: WNL Concentration: WNL Association: WNL Fund of Knowledge: WNL Decription of patient's judgement and insights: Improving I/J - Mood Mood: Depressed, Anxious - Affect Affect: Constricted - Speech Speech: Appropriate - Formal Thought Process Formal Thought Process: Loosening of associations, Circumstantial Psychotic Thoughts and Behaviors: Denies acute AH/VH/paranoia/delusions - Suicidal Ideation Suicidal Ideation: Yes Plan: Passive SI; no current plan - Homicidal Ideation Homicidal Ideation: No Goal/Treatment Plan - Goal/Treatment Plan Need for Continued Stay: Remain at risks for inpatient hospitalization, Severe depression anxiety, Discharge may exacerbated symptoms Progress Toward Problem(s) and Goals/Treatment Plan: Bipolar Disorder w/ Psychotic Features -Individual and group therapy -Increase Zyprexa -Start Depakote -Medicine consult -Disposition planning- patient needs continued hospitalization for treatment and safety Estimated Date of D/C: 12/08/17
[2017-12-04] MEDS: Multivitamin With Minerals Tab PO SCH (08:37)
[2017-12-04] MEDS: Divalproex 500 mg DR(BID formulation) PO SCH ×2 (08:39→17:35)
[2017-12-04] MEDS ORDERED: Tuberculin 5 Units/0.1 ml Inj ID ONE (14:41)
[2017-12-05] MEDS: Multivitamin With Minerals Tab PO SCH (09:28)
[2017-12-05] MEDS: Divalproex 500 mg DR(BID formulation) PO SCH ×2 (09:29→18:02)
--- NOTE | 2017-12-05 09:49 | PCM.PYCHPN ---
Psychiatric Progress Note - Psychiatric Progress Note Patient seen today, length of contact: Pt evaluated, case discussed w/ team, chart reviewed Patient Chief Complaint: "I'm depressed." Problems Identified/Issues Discussed: Patient continues to feel depressed and anxious. No AH/VH/SI/HI. He continues to report difficultly sleeping at night. Psychoeducation provided on the importance of sleep hygiene. No adverse effects to medications reported. Medication Change: No Medical Record Reviewed: Yes Consults ordered or reviewed: Medicine consult Psychology consult: Pt is a 77 year old male admitted into the geropsych unit and referred to the physician underwriter for evaluation. On the DRS, pt scored an overall score of 135. Pt scored within normal limits on all tasks. Pt's Initiation, Memory, Construction, Conceptualization and Attention skills all fell within normal limits. Overall 135 Cognitive skills were found to be intact Mental Status Examination - Cognitive Function Orientation: Person, Place, Situation, Time Memory: Intact Attention: WNL Concentration: WNL Association: WNL Fund of Knowledge: WNL Decription of patient's judgement and insights: Improving I/J - Mood Mood: Depressed, Anxious - Affect Affect: Constricted - Speech Speech: Appropriate - Formal Thought Process Formal Thought Process: Loosening of associations Psychotic Thoughts and Behaviors: Denies acute AH/VH/paranoia/delusions - Suicidal Ideation Suicidal Ideation: No - Homicidal Ideation Homicidal Ideation: No Goal/Treatment Plan - Goal/Treatment Plan Need for Continued Stay: Severe depression anxiety, Discharge may exacerbated symptoms Progress Toward Problem(s) and Goals/Treatment Plan: Bipolar Disorder w/ Psychotic Features -Individual and group therapy -Continue Zyprexa and Depakote -Medicine consult -Disposition planning Estimated Date of D/C: 12/08/17
[2017-12-06] MEDS: Divalproex 500 mg DR(BID formulation) PO SCH ×2 (08:27→16:22)
[2017-12-06] MEDS: Multivitamin With Minerals Tab PO SCH (08:27)
--- NOTE | 2017-12-06 10:30 | PCM.PYCHPN ---
Psychiatric Progress Note - Psychiatric Progress Note Patient seen today, length of contact: Pt evaluated, case discussed w/ team, chart reviewed Patient Chief Complaint: pt has remained depressed and is withdrawn and denies side effects Medication Change: No Medical Record Reviewed: Yes Mental Status Examination - Cognitive Function Orientation: Person, Place, Situation, Time Memory: Intact Attention: WNL Concentration: WNL Association: WNL Fund of Knowledge: WNL - Mood Mood: Depressed, Anxious - Affect Affect: Constricted - Speech Speech: Appropriate - Formal Thought Process Formal Thought Process: Loosening of associations - Suicidal Ideation Suicidal Ideation: No - Homicidal Ideation Homicidal Ideation: No Goal/Treatment Plan - Goal/Treatment Plan Need for Continued Stay: Severe depression anxiety, Discharge may exacerbated symptoms Estimated Date of D/C: 12/08/17
[2017-12-07] MEDS: Divalproex 500 mg DR(BID formulation) PO SCH ×2 (09:28→18:29)
[2017-12-07] MEDS: Multivitamin With Minerals Tab PO SCH (09:28)
--- NOTE | 2017-12-07 14:56 | PCM.PYCHPN ---
Psychiatric Progress Note - Psychiatric Progress Note Patient seen today, length of contact: Pt evaluated, case discussed w/ team, chart reviewed Patient Chief Complaint: pt has remained depressed and is withdrawn and denies side effects to meds.pt denies suicidal ideation .pt remains with poor insight and need further stabilization. Medication Change: No Medical Record Reviewed: Yes Mental Status Examination - Cognitive Function Orientation: Person, Place, Situation, Time Memory: Intact Attention: WNL Concentration: WNL Association: WNL Fund of Knowledge: WNL - Mood Mood: Depressed, Anxious - Affect Affect: Constricted - Speech Speech: Appropriate - Formal Thought Process Formal Thought Process: Loosening of associations - Suicidal Ideation Suicidal Ideation: No - Homicidal Ideation Homicidal Ideation: No Goal/Treatment Plan - Goal/Treatment Plan Need for Continued Stay: Severe depression anxiety, Discharge may exacerbated symptoms Progress Toward Problem(s) and Goals/Treatment Plan: will continue to engage pt in therapy and groups and titrate meds to stabilize the pt. Disposition as per dr sheldon and treatment team. Estimated Date of D/C: 12/08/17
[2017-12-08 06:10] VITALS: BP 153/83; PULSE 58; RESP 19; TEMP 97.1
[2017-12-08 06:33] LABS: EOS # 0.4 K/uL (0.0-0.7); EOS % 6.1 % (0.0-4.0); HEMOGLOBIN 14.9 g/dL (12.0-18.0); LYMPH # 2.7 K/uL (1.0-4.3); LYMPH % 40.2 % (20.0-40.0); MEAN CELL VOLUME 90.6 fl (80.0-94.0); MEAN CORPUSCULAR HEMOGLOBIN 30.6 pg (27.0-31.0); MEAN CORPUSCULAR HGB CONC 33.7 g/dL (33.0-37.0); MONO # 0.9 K/uL (0.0-0.8); NEUT # 2.7 K/uL (1.8-7.0); NEUT % 39.7 % (50.0-75.0); RBC 4.87 Mil/uL (4.40-5.90); RED CELL DISTRIBUTION WIDTH 13.1 % (11.5-14.5); WHITE BLOOD COUNT 6.7 K/uL (4.8-10.8)
[2017-12-08 06:51] LABS: BLOOD UREA NITROGEN 21 mg/dl (9-20); GFR NON-AFRICAN AMERICAN > 60
[2017-12-08 06:52] LABS: ALB/GLOB RATIO 1.1 (1.0-2.1); ALBUMIN 3.9 g/dL (3.5-5.0); ALT/SGPT 18 U/L (21-72); AST/SGOT 22 U/L (17-59); CALCIUM 10.5 mg/dL (8.4-10.2)
[2017-12-08] MEDS: Divalproex 500 mg DR(BID formulation) PO SCH (08:39)
[2017-12-08] MEDS: Multivitamin With Minerals Tab PO SCH (08:40)
--- NOTE | 2017-12-08 09:56 | PCM.PYCHDC ---
Mental Status Examination - Mental Status Examination Orientation: Person, Place, Situation, Time Memory: Intact Mood: Neutral Affect: Broad Speech: Appropriate Attention: WNL Concentration: WNL Association: WNL Fund of Knowledge: WNL Formal Thought Process: No Impairment Description of patient's judgement and insight: Fair I/J Psychotic Thoughts and Behaviors: Denies acute AH/VH/paranoia/delusions Suicidal Ideation: No Current Homicidal Ideation?: No Discharge Summary - Discharge Note Reason for Hospitalization: HPI: 77 yo male w/ history of Bipolar disorder, presents w/ severe depression in the context of the recent of his . +Depressed mood +Anhedonia +Suicidal Ideation w/o current plan +Hopelessness +Poor memory +Concentration +Poor appetite +Poor sleep +Intermittent AH of his calling his name +Weight loss ~ 30 lbs in the last 2-3 months +Poor self care (not showering or leaving his home; eating and drinking minimally) PPHx: 6 prior psychiatric admissions, last in 1992; h/o Bipolar Disorder, not currently compliant w/ treatment or medications; most recently treated w/ Zyprexa and Lamictal; patient requested to be placed back on Zyprexa; Denies h/o suicide attempts PMHx: HTN, Hypothyroidism (not compliant with medications) ALL: NKDA SHx: of 39 year 2 weeks ago; now lives alone w/ his cats; 1 step daughter, 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[employer]; no drugs/etoh/cig use FHx: Denies family h/o mental illness Laboratory Data: Abnormal Lab Results 12/08/17 12/08/17 12/08/17 06:15 06:15 06:15 WBC 6.7 RBC 4.87 Hgb 14.9 Hct 44.2 MCV 90.6 MCH 30.6 MCHC 33.7 RDW 13.1 Plt Count 316 MPV 7.0 L Neut % (Auto) 39.7 L Lymph % (Auto) 40.2 H Greer % (Auto) 14.0 H Eos % (Auto) 6.1 H Baso % (Auto) 0.0 Neut # (Auto) 2.7 Lymph # (Auto) 2.7 Greer # (Auto) 0.9 H Eos # (Auto) 0.4 Baso # (Auto) 0.0 Sodium 141 Potassium 4.7 Chloride 106 Carbon Dioxide 28 Anion Gap 12 BUN 21 H Creatinine 0.7 L Est GFR ( Amer) > 60 Est GFR (Non-Af Amer) > 60 Random Glucose 90 Calcium 10.5 H Total Bilirubin 0.8 AST 22 ALT 18 L Alkaline Phosphatase 65 Total Protein 7.4 Albumin 3.9 Globulin 3.5 Albumin/Globulin Ratio 1.1 Valproic Acid 31.5 L Consultations:: List each consultation separately and include: 1. Reason for request. 2. Findings. 3. Follow-up Consultations: Medicine consult Psychology consult: Pt is a 77 year old male admitted into the geropsych unit and referred to the freelance writer for evaluation. On the DRS, pt scored an overall score of 135. Pt scored within normal limits on all tasks. Pt's Initiation, Memory, Construction, Conceptualization and Attention skills all fell within normal limits. Overall 135 Cognitive skills were found to be intact Summary of Hospital Course include:: 1. Description of specific treatment plan utilized for patients during their course of treatmen. 2. Summarize the time- course for resolution of acute symptoms and/or regressed behaviors. 3. Describe issues identified and worked on during hospitalization. 4. Describe medication utilized. 5. Describe medical problems identified and treated. 6. Reassessment of suicide risk Summary of Hospital Course: Patient was admitted to the psychiatry unit. Individual and group therapy were provided. Patient was stabilized on Zyprexa 20 mg PO HS and Depakote 500 mg PO BID. He is currently psychiatrically stable for discharge at this time. - Diagnosis (1) Bipolar disorder Current Visit: Yes Status: Chronic - Final Diagnosis (DSM 5) Condition upon Discharge: STABLE DSM 5: Bipolar Disorder Disposition: HOME/ ROUTINE Follow-up Treatment Plan: Bipolar Disorder w/ Psychotic Features -Individual and group therapy -Continue Zyprexa and Depakote -Medicine consult -Disposition planning- Patient to be discharged to Assisted Living Facility Prescriptions/Medication Reconciliation: amLODIPine [Norvasc] 5 mg PO DAILY #30 tab Divalproex [Depakote DR (*BID*)] 500 mg PO BID #120 ect Olanzapine [Zyprexa] 20 mg PO HS #30 tablet Tamsulosin [Flomax] 0.4 mg PO DAILY #30 cap - Smoking Cessation Smoking Cessation Medication prescribed: No Reason for not providing: Not indicated - Antipsychotic Medications Pt discharged on 2 or more routine antipsychotic medications: No
== END 2017-12-08 16:00 | disposition home or self-care (01) | DRG 885 ==
LOC: H.ER 16:30 → H.ERHOLD 21:24 → H.STEP 11-25 02:56
PROVIDERS: ADMIT Psychiatry & Neurology Psychiatry; ATTEND Psychiatry & Neurology Psychiatry
PROC: GZHZZZZ Group Psychotherapy (ICD-10-PCS; principal; 2017-11-24)
DX: F31.9 Bipolar disorder, unspecified (principal); N39.0 Urinary tract infection, site not specified; R45.851 Suicidal ideations; E03.9 Hypothyroidism, unspecified; I10 Essential (primary) hypertension; Z91.14 Patient's other noncompliance with medication regimen; Z91.19 Patient's noncompliance with other medical treatment and regimen; R63.4 Abnormal weight loss; Z68.20 Body mass index [BMI] 20.0-20.9, adult; F41.9 Anxiety disorder, unspecified